=== PATIENT | male | born 1945 | race Caucasian/White ===

== ENCOUNTER 2023-11-07 11:55 | Observation (INO) | payer MEDICARE, SELFPAY ==
[2023-11-07] VITALS (42 sets, daily range): BP systolic 111–182; BP diastolic 58–89; PULSE 62–81; RESP 19–38; TEMP 36.1–36.5; O2SAT 88–95; BMI 25.0
--- NOTE | 2023-11-07 11:57 | DI.RAD.S_ITS ---
PROCEDURE: XR CHEST 1V INDICATIONS: chest pain TECHNIQUE: One view of the chest was acquired. COMPARISON: None. FINDINGS: Surgical changes and devices: None. Lungs and pleura: There is suggestion of small right pleural effusion with right basilar atelectasis. Ill-defined airspace opacity in left infrahilar region is also noted concerning for left lower lobe infiltrate. No pneumothorax. Chronic emphysematous changes are seen.. Mediastinum: Is enlarged. Tortuous thoracic aorta is seen. Bones and chest wall: No suspicious bony lesions. Overlying soft tissues appear unremarkable. IMPRESSION: Small left infrahilar infiltrate versus atelectasis. Small right pleural effusion with right basilar atelectasis. No pneumothorax. Dictated by: Raijnder Padron M.D. on 11/07/2023 at 12:22 Approved by: Rajinder Padron M.D. on 11/07/2023 at 12:24
--- NOTE | 2023-11-07 11:57 | EKG_ITS ---
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
--- NOTE | 2023-11-07 12:00 | EKG_ITS ---
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
--- NOTE | 2023-11-07 12:02 | ED.CHESTPAIN ---
HPI - Chest Pain <DO Jeannette Whitt Last Filed: 11/14/23 09:47> General Chief Complaint: Chest Pain Stated Complaint: possible heart attack Time Seen by Provider: 11/07/23 12:02 History of Present Illness HPI narrative: Patient is a 78-year-old male history of atrial fibrillation pneumonectomy on [facility] diltiazem aspirin presenting today with right-sided chest pain and some shortness of breath. He reports it started last night it has been constant in nature it does not hurt to move. He reports it is deep inside no known coronary artery disease it does go up into his neck sometimes. No fever chills or sweats. They drove up here from [place] to help a friend out. He has no known congestive heart failure. He has been taking all his medications. Looks to be in sinus rhythm on the monitor. Related Data Home Medications Medication Instructions Recorded Confirmed apixaban 5 mg tablet 5 mg PO DAILY 11/07/23 11/07/23 atorvastatin 20 mg tablet 20 mg PO DAILY 11/07/23 11/07/23 diltiazem HCl 120 mg capsule,24 120 mg PO DAILY 11/07/23 11/07/23 hr,extended release flecainide 50 mg tablet 50 mg PO Q12H 11/07/23 11/07/23 fluticasone fur. 100 mcg-umeclid 1 inh inhalation DAILY 11/07/23 11/07/23 62.5 mcg-vilant 25 mcg inhalat.powder (Trelegy Ellipta) fluticasone propionate 50 1 spray intranasal BID 11/07/23 11/07/23 mcg/actuation nasal spray,suspension losartan 50 mg tablet 50 mg PO BID 11/07/23 11/07/23 metformin 500 mg tablet 500 mg PO DAILY 11/07/23 11/07/23 pantoprazole 40 mg tablet,delayed 40 mg PO DAILY 11/07/23 11/07/23 release spironolactone 25 mg tablet 25 mg PO DAILY 11/07/23 11/07/23 Previous Rx's Medication Instructions Recorded doxycycline hyclate 100 mg capsule 100 mg PO BID #10 caps 11/08/23 Allergies Allergy/AdvReac Type Severity Reaction Status Date / Time No Known Drug Allergies Allergy Verified 11/07/23 12:05 Patient History <DO Jeannette Whitt Last Filed: 11/14/23 09:47> Social History household members: significant other Smoking Status: Former smoker Exam <Brandy Cortes DO - Last Filed: 11/14/23 09:47> Initial Vital Signs Initial Vital Signs: Vital Signs Temperature 97.7 F 11/07/23 11:59 Pulse Rate 72 11/07/23 11:59 Respiratory Rate 30 H 11/07/23 11:59 Blood Pressure 182/89 H 11/07/23 11:59 Pulse Oximetry 95 11/07/23 11:59 Oxygen Delivery Method Room Air 11/07/23 11:59 GENERAL: Alert pleasant 78-year-old male and in no acute distress. HEENT: Head atraumatic,EOMI, pupils reactive, face symmetric, moist mucous membranes CARDIOVASCULAR: Regular rate and rhythm without murmurs, rubs or gallops. RESPIRATORY: Breath sounds equal bilaterally, no wheezes rales or rhonchi. ABDOMEN: Soft, nontender. Normoactive bowel sounds all 4 quadrants. No guarding or rebound. EXTREMITIES: Normal range of motion, no clubbing or edema. Neurovascularly intact NEUROLOGICAL: Alert and oriented x4.Normal gait and speech. Cranial nerves II through XII grossly intact. SKIN: Warm, dry, no laceration, no petechiae, no rashes or lesions. <Danny Ojeda DO - Last Filed: 11/07/23 15:36> Initial Vital Signs Initial Vital Signs: Vital Signs Temperature 97.7 F 11/07/23 11:59 Pulse Rate 72 11/07/23 11:59 Respiratory Rate 30 H 11/07/23 11:59 Blood Pressure 182/89 H 11/07/23 11:59 Pulse Oximetry 95 11/07/23 11:59 Oxygen Delivery Method Room Air 11/07/23 11:59 Course <Brandy Cortes DO - Last Filed: 11/14/23 09:47> Orders Ordered: Discontinued Medications Acetaminophen (Acetaminophen 325 Mg Tablet) 650 mg PO Q6H PRN PRN Reason: Fever/Mild Pain (1-3) Last Admin: 11/07/23 20:23 Dose: 650 mg Documented By: [facility] Aspirin (Aspirin 81 Mg Chew Tab) 324 mg PO NOW ONE Stop: 11/07/23 11:58 Last Admin: 11/07/23 12:12 Dose: 324 mg Documented By: BK Doxycycline Hyclate (Doxycycline Hyclate 100 Mg Tablet) 100 mg PO BID [facility] Last Admin: 11/08/23 10:05 Dose: 100 mg Documented By: Admin: 11/07/23 20:20 Dose: 100 mg Documented By: MARCELL Ceftriaxone Sodium 2,000 mg/ (Sodium Chloride) 100 mls @ 200 mls/hr IV NOW ONE Stop: 11/07/23 15:34 Last Infusion: 11/07/23 16:55 Dose: Infused Documented By: Admin: 11/07/23 16:18 Dose: 200 mls/hr Documented By: RADHA Doxycycline Hyclate 100 mg/ (Sodium Chloride) 100 mls @ 100 mls/hr IV NOW ONE Stop: 11/07/23 15:34 Last Admin: 11/07/23 18:08 Dose: Not Given Documented By: BAKARI Ceftriaxone Sodium 1,000 mg/ (Sodium Chloride) 100 mls @ 200 mls/hr IV Q24H [facility] Last Admin: 11/08/23 10:05 Dose: 200 mls/hr Documented By: CARTER Naloxone HCl (Naloxone 0.4 Mg/Ml Vial) 0.2 mg IV Q2MIN PRN PRN Reason: Opiate Reversal Nitroglycerin (Nitroglycerin 0.4 Mg Sl Tab) 0.4 mg SL [id number] PRN PRN Reason: Chest Pain Last Admin: 11/07/23 12:26 Dose: 0.4 mg Documented By: Admin: 11/07/23 12:18 Dose: 0.4 mg Documented By: Admin: 11/07/23 12:13 Dose: 0.4 mg Documented By: BK Ondansetron HCl (Ondansetron 4 Mg/2 Ml Inj) 4 mg IV Q8HR PRN PRN Reason: Nausea And Vomiting Oxycodone HCl (Oxycodone Ir 5 Mg Tablet) 5 mg PO Q3H PRN PRN Reason: Pain, Moderate (4-6) Sodium Chloride (Sodium Chloride 0.9% Flush) 10 ml IV PRN PRN PRN Reason: Flush Sodium Chloride (Sodium Chloride 0.9% Flush) 10 ml IV BID [facility] Last Admin: 11/08/23 10:06 Dose: 10 ml Documented By: Admin: 11/07/23 20:24 Dose: 10 ml Documented By: MARCELL Vital Signs Vital signs: Vital Signs - 8 hr 11/07/23 11:59 11/07/23 12:08 11/07/23 12:09 Temperature 97.7 F Pulse Rate 72 70 71 Respiratory Rate 30 H 33 H 31 H Blood Pressure 182/89 H Pulse Oximetry 95 93 94 Oxygen Delivery Method Room Air 11/07/23 12:09 11/07/23 12:13 11/07/23 12:18 Temperature Pulse Rate 67 77 Respiratory Rate Blood Pressure 148/75 H 147/75 H 147/67 H Pulse Oximetry Oxygen Delivery Method 11/07/23 12:18 11/07/23 12:18 11/07/23 12:23 Temperature Pulse Rate 77 81 Respiratory Rate 30 H 33 H Blood Pressure 147/67 H Pulse Oximetry 92 93 Oxygen Delivery Method 11/07/23 12:23 11/07/23 12:26 11/07/23 12:28 Temperature Pulse Rate 79 80 Respiratory Rate 28 H Blood Pressure 126/58 L 126/58 L Pulse Oximetry 90 L Oxygen Delivery Method 11/07/23 12:28 11/07/23 12:30 11/07/23 12:30 Temperature Pulse Rate 80 Respiratory Rate 33 H Blood Pressure 122/61 111/64 Pulse Oximetry 91 Oxygen Delivery Method 11/07/23 12:40 11/07/23 12:40 11/07/23 12:50 Temperature Pulse Rate 74 73 Respiratory Rate 29 H 28 H Blood Pressure 123/64 Pulse Oximetry 93 93 Oxygen Delivery Method 11/07/23 12:50 11/07/23 13:00 11/07/23 13:00 Temperature Pulse Rate 72 Respiratory Rate 30 H Blood Pressure 123/62 121/65 Pulse Oximetry 92 Oxygen Delivery Method 11/07/23 13:10 11/07/23 13:10 11/07/23 13:20 Temperature Pulse Rate 72 67 Respiratory Rate 28 H 26 H Blood Pressure 118/69 Pulse Oximetry 94 94 Oxygen Delivery Method 11/07/23 13:20 11/07/23 13:30 11/07/23 13:30 Temperature Pulse Rate 64 Respiratory Rate 24 Blood Pressure 115/65 112/64 Pulse Oximetry 94 Oxygen Delivery Method 11/07/23 13:40 11/07/23 13:40 11/07/23 13:50 Temperature Pulse Rate 67 Respiratory Rate 26 H Blood Pressure 111/64 117/67 Pulse Oximetry 93 Oxygen Delivery Method 11/07/23 13:50 11/07/23 14:00 11/07/23 14:00 Temperature Pulse Rate 63 67 Respiratory Rate 24 27 H Blood Pressure 114/71 Pulse Oximetry 93 94 Oxygen Delivery Method 11/07/23 14:10 11/07/23 14:10 11/07/23 14:20 Temperature Pulse Rate 63 68 Respiratory Rate 24 28 H Blood Pressure 114/69 Pulse Oximetry 94 94 Oxygen Delivery Method 11/07/23 14:20 11/07/23 14:30 11/07/23 14:30 Temperature Pulse Rate 62 Respiratory Rate 26 H Blood Pressure 121/75 119/74 Pulse Oximetry 93 Oxygen Delivery Method 11/07/23 14:40 11/07/23 14:40 Temperature Pulse Rate 65 Respiratory Rate 30 H Blood Pressure 118/74 Pulse Oximetry 95 Oxygen Delivery Method <aDnny Ojeda, - Last Filed: 11/07/23 15:36> Orders Ordered: Discontinued Medications Acetaminophen (Acetaminophen 325 Mg Tablet) 650 mg PO Q6H PRN PRN Reason: Fever/Mild Pain (1-3) Last Admin: 11/07/23 20:23 Dose: 650 mg Documented By: MARCELL Aspirin (Aspirin 81 Mg Chew Tab) 324 mg PO NOW ONE Stop: 11/07/23 11:58 Last Admin: 11/07/23 12:12 Dose: 324 mg Documented By: BK Doxycycline Hyclate (Doxycycline Hyclate 100 Mg Tablet) 100 mg PO BID [facility] Last Admin: 11/08/23 10:05 Dose: 100 mg Documented By: Admin: 11/07/23 20:20 Dose: 100 mg Documented By: MARCELL Ceftriaxone Sodium 2,000 mg/ (Sodium Chloride) 100 mls @ 200 mls/hr IV NOW ONE Stop: 11/07/23 15:34 Last Infusion: 11/07/23 16:55 Dose: Infused Documented By: Admin: 11/07/23 16:18 Dose: 200 mls/hr Documented By: RADHA Doxycycline Hyclate 100 mg/ (Sodium Chloride) 100 mls @ 100 mls/hr IV NOW ONE Stop: 11/07/23 15:34 Last Admin: 11/07/23 18:08 Dose: Not Given Documented By: BAKARI Ceftriaxone Sodium 1,000 mg/ (Sodium Chloride) 100 mls @ 200 mls/hr IV Q24H [facility] Last Admin: 11/08/23 10:05 Dose: 200 mls/hr Documented By: CARTER Naloxone HCl (Naloxone 0.4 Mg/Ml Vial) 0.2 mg IV Q2MIN PRN PRN Reason: Opiate Reversal Nitroglycerin (Nitroglycerin 0.4 Mg Sl Tab) 0.4 mg SL [id number] PRN PRN Reason: Chest Pain Last Admin: 11/07/23 12:26 Dose: 0.4 mg Documented By: Admin: 11/07/23 12:18 Dose: 0.4 mg Documented By: Admin: 11/07/23 12:13 Dose: 0.4 mg Documented By: BK Ondansetron HCl (Ondansetron 4 Mg/2 Ml Inj) 4 mg IV Q8HR PRN PRN Reason: Nausea And Vomiting Oxycodone HCl (Oxycodone Ir 5 Mg Tablet) 5 mg PO Q3H PRN PRN Reason: Pain, Moderate (4-6) Sodium Chloride (Sodium Chloride 0.9% Flush) 10 ml IV PRN PRN PRN Reason: Flush Sodium Chloride (Sodium Chloride 0.9% Flush) 10 ml IV BID [facility] Last Admin: 11/08/23 10:06 Dose: 10 ml Documented By: Admin: 11/07/23 20:24 Dose: 10 ml Documented By: MARCELL Vital Signs Vital signs: Vital Signs - 8 hr 11/07/23 11:59 11/07/23 12:08 11/07/23 12:09 Temperature 97.7 F Pulse Rate 72 70 71 Respiratory Rate 30 H 33 H 31 H Blood Pressure 182/89 H Pulse Oximetry 95 93 94 Oxygen Delivery Method Room Air 11/07/23 12:09 11/07/23 12:13 11/07/23 12:18 Temperature Pulse Rate 67 77 Respiratory Rate Blood Pressure 148/75 H 147/75 H 147/67 H Pulse Oximetry Oxygen Delivery Method 11/07/23 12:18 11/07/23 12:18 11/07/23 12:23 Temperature Pulse Rate 77 81 Respiratory Rate 30 H 33 H Blood Pressure 147/67 H Pulse Oximetry 92 93 Oxygen Delivery Method 11/07/23 12:23 11/07/23 12:26 11/07/23 12:28 Temperature Pulse Rate 79 80 Respiratory Rate 28 H Blood Pressure 126/58 L 126/58 L Pulse Oximetry 90 L Oxygen Delivery Method 11/07/23 12:28 11/07/23 12:30 11/07/23 12:30 Temperature Pulse Rate 80 Respiratory Rate 33 H Blood Pressure 122/61 111/64 Pulse Oximetry 91 Oxygen Delivery Method 11/07/23 12:40 11/07/23 12:40 11/07/23 12:50 Temperature Pulse Rate 74 73 Respiratory Rate 29 H 28 H Blood Pressure 123/64 Pulse Oximetry 93 93 Oxygen Delivery Method 11/07/23 12:50 11/07/23 13:00 11/07/23 13:00 Temperature Pulse Rate 72 Respiratory Rate 30 H Blood Pressure 123/62 121/65 Pulse Oximetry 92 Oxygen Delivery Method 11/07/23 13:10 11/07/23 13:10 11/07/23 13:20 Temperature Pulse Rate 72 67 Respiratory Rate 28 H 26 H Blood Pressure 118/69 Pulse Oximetry 94 94 Oxygen Delivery Method 11/07/23 13:20 11/07/23 13:30 11/07/23 13:30 Temperature Pulse Rate 64 Respiratory Rate 24 Blood Pressure 115/65 112/64 Pulse Oximetry 94 Oxygen Delivery Method 11/07/23 13:40 11/07/23 13:40 11/07/23 13:50 Temperature Pulse Rate 67 Respiratory Rate 26 H Blood Pressure 111/64 117/67 Pulse Oximetry 93 Oxygen Delivery Method 11/07/23 13:50 11/07/23 14:00 11/07/23 14:00 Temperature Pulse Rate 63 67 Respiratory Rate 24 27 H Blood Pressure 114/71 Pulse Oximetry 93 94 Oxygen Delivery Method 11/07/23 14:10 11/07/23 14:10 11/07/23 14:20 Temperature Pulse Rate 63 68 Respiratory Rate 24 28 H Blood Pressure 114/69 Pulse Oximetry 94 94 Oxygen Delivery Method 11/07/23 14:20 11/07/23 14:30 11/07/23 14:30 Temperature Pulse Rate 62 Respiratory Rate 26 H Blood Pressure 121/75 119/74 Pulse Oximetry 93 Oxygen Delivery Method 11/07/23 14:40 11/07/23 14:40 Temperature Pulse Rate 65 Respiratory Rate 30 H Blood Pressure 118/74 Pulse Oximetry 95 Oxygen Delivery Method MDM - Chest Pain <Brandy Cortes DO - Last Filed: 11/14/23 09:47> Lab Data 11/08/23 04:10 11/08/23 04:10 Labs: Lab Results 11/07/23 11/07/23 11/07/23 Range/Units 12:01 13:55 15:05 WBC 16.0 H (4.5-11.0) X10^3/uL RBC 4.80 (4.5-5.9) X10^6/uL Hgb 16.1 (13.5-17.5) g/dL Hct 48.2 (41-53) % MCV 100.3 H (80-100) fL MCH 33.5 (26-34) PG MCHC 33.4 (30-36) % RDW 14.4 (11.6-14.8) % Plt Count 302 (150-400) X10^3/uL Neut % (Auto) 65.5 (50-75) % Lymph % (Auto) 17.8 L (25-40) % Jack % (Auto) 14.5 H (3-14) % Eos % (Auto) 1.3 L (2-4) % Baso % (Auto) 0.9 (0-2) % Neut # (Auto) 18573 H (9655-9036) /uL Lymph # (Auto) 2900 (5115-4608) /uL Jack # (Auto) 2300 H (0-900) /uL Eos # (Auto) 200 (0-450) /uL Baso # (Auto) 100 (0-100) /uL PT 16.3 H (9.4-12.5) SECONDS INR 1.4 H (0.9-1.3) APTT 38 H (25.1-36.5) SECONDS D-Dimer < 215 (<500) ng/ml Sodium 138 (137-145) mmol/L Potassium 4.5 (3.4-5.1) mmol/L Chloride 105 (98-107) mmol/L Carbon Dioxide 25 (22-32) mmol/L BUN 14 (9-20) mg/dL Creatinine 0.98 (0.66-1.25) mg/dL Estimated GFR > 60 (>60) mL/min BUN/Creatinine Ratio 14.3 (6-22) Glucose 102 (80-110) mg/dL Calcium 9.6 (8.4-10.2) mg/dL Magnesium 1.8 (1.6-2.3) mg/dL Total Bilirubin 1.1 (0.2-1.3) mg/dL AST 29 (17-59) IU/L ALT 32 (<50) IU/L Alkaline Phosphatase 56 (38-126) U/L Total Creatine Kinase 67 (55-170) U/L Troponin I < 0.012 < 0.012 (0.01-0.034) ng/mL NT-Pro-B Natriuret Pep 38 (<450) pg/mL Total Protein 7.6 (6.3-8.2) g/dL Albumin 4.4 (3.5-5.0) g/dL Globulin 3.2 (1.7-4.1) g/dL Albumin/Globulin Ratio 1.4 (1.0-2.8) Lipase 36 (23-300) U/L Urine Color Yellow Urine Appearance Clear Urine pH 5.5 (4.5-8.0) Ur Specific [place] 1.015 (1.000-1.035) Urine Protein Negative (Negative) Urine Glucose (UA) Negative (Negative) g/dL Urine Ketones Negative (NEGATIVE) Urine Occult Blood Negative (Negative) Urine Nitrate Negative (Negative) Urine Bilirubin Negative (NEGATIVE) Urine Urobilinogen 0.2 (0.2) E.U./dL Ur Leukocyte Esterase Trace H (NEGATIVE) Urine RBC None seen (0-5/HPF) Urine WBC 0-1/hpf (0-5/HPF) Ur Squamous Epith Cells 0-1 /hpf (0-5/HPF) Urine Bacteria Occasional (0-1) (None) Ur Culture Indicated? Specimen cultured Vol Urine Centrifuged 10ml (spun) Imaging Data Chest x-ray: Radiologist's Impression: PROCEDURE: XR CHEST 1V INDICATIONS: chest pain TECHNIQUE: One view of the chest was acquired. COMPARISON: None. FINDINGS: Surgical changes and devices: None. Lungs and pleura: There is suggestion of small right pleural effusion with right basilar atelectasis. Ill-defined airspace opacity in left infrahilar region is also noted concerning for left lower lobe infiltrate. No pneumothorax. Chronic emphysematous changes are seen.. Mediastinum: Is enlarged. Tortuous thoracic aorta is seen. Bones and chest wall: No suspicious bony lesions. Overlying soft tissues appear unremarkable. IMPRESSION: Small left infrahilar infiltrate versus atelectasis. Small right pleural effusion with right basilar atelectasis. No pneumothorax. Dictated by: Rajinder Padron M.D. on 11/07/2023 at 12:22 ECG Data Attestation: I personally reviewed and interpreted this ECG as follows: Interpretation: Normal sinus rhythm rate 72 IL interval 184 QRS 142 QTC 457 right bundle-branch block noted no acute ST changes MDM Narrative Medical decision making narrative: MDM CC: Chest pain Complicating co-morbidities: Atrial fibrillation pneumonectomy, on Eliquis and aspirin Medical records reviewed: Medications reviewed from patient's phone Differential considered: Acute coronary syndrome AFib with RVR pneumonia PE unlikely cause he is anticoagulated Exam documented above, pertinent findings include: Pain nonreproducible appears well non diaphoretic Lab Test results independently reviewed as above. Pertinent findings: WBC 16, INR 1.4 PTT 38, sodium 130 potassium 4 chloride 105 carbon dioxide 25 BUN 14 creatinine 0.9, glucose 102 bili 1.1, AST 29, ALT 32, troponin Independently reviewed EKG as above Normal sinus rhythm right bundle-branch block no ischemia no priors to compare Imaging studies independently reviewed: Consultations: [ ] Treatments: Nitro x2 Re-evaluations: Patient is completely chest pain-free after 2 nitroglycerin Discussion: Patient is 78-year-old male history of atrial fibrillation lung cancer on Eliquis and flecainide presenting today with large right-sided chest pain. His pain is relieved after 2 nitroglycerin. 1st troponin is negative he has no ischemia. Patient reports he has previously not been able to do treadmill stress test because he frequently needs oxygen while he does not he is not on oxygen baseline. Repeat troponin is pending Signed out to Dr. Ojeda patient with a leukocytosis of 16, chest x-ray showing possible atelectasis versus infiltrate of the left side, patient not complaining of any cough, however upon re-evaluation patient with intermittent ,Coughs upon talking, therefore will prophylactically treat for pneumonia. Rocephin and doxy ordered. Did discuss case with cardiology who state patient does not need to be transferred can stay here but would recommend nuclear stress test and echo in the a.m.. Discussed with hospitalist who accepts admission. <Danny Ojeda, - Last Filed: 11/07/23 15:36> Differential Diagnosis Differential diagnosis: Likely atypical chest pain, st elevation myocardial infarction and other (pneumonia) Condition is:: Improved Lab Data Labs: Lab Results 11/07/23 11/07/23 11/07/23 Range/Units 12:01 13:55 15:05 WBC 16.0 H (4.5-11.0) X10^3/uL RBC 4.80 (4.5-5.9) X10^6/uL Hgb 16.1 (13.5-17.5) g/dL Hct 48.2 (41-53) % MCV 100.3 H (80-100) fL MCH 33.5 (26-34) PG MCHC 33.4 (30-36) % RDW 14.4 (11.6-14.8) % Plt Count 302 (150-400) X10^3/uL Neut % (Auto) 65.5 (50-75) % Lymph % (Auto) 17.8 L (25-40) % Jack % (Auto) 14.5 H (3-14) % Eos % (Auto) 1.3 L (2-4) % Baso % (Auto) 0.9 (0-2) % Neut # (Auto) 08984 H (3422-1692) /uL Lymph # (Auto) 2900 (7574-1339) /uL Jack # (Auto) 2300 H (0-900) /uL Eos # (Auto) 200 (0-450) /uL Baso # (Auto) 100 (0-100) /uL PT 16.3 H (9.4-12.5) SECONDS INR 1.4 H (0.9-1.3) APTT 38 H (25.1-36.5) SECONDS D-Dimer < 215 (<500) ng/ml Sodium 138 (137-145) mmol/L Potassium 4.5 (3.4-5.1) mmol/L Chloride 105 (98-107) mmol/L Carbon Dioxide 25 (22-32) mmol/L BUN 14 (9-20) mg/dL Creatinine 0.98 (0.66-1.25) mg/dL Estimated GFR > 60 (>60) mL/min BUN/Creatinine Ratio 14.3 (6-22) Glucose 102 (80-110) mg/dL Calcium 9.6 (8.4-10.2) mg/dL Magnesium 1.8 (1.6-2.3) mg/dL Total Bilirubin 1.1 (0.2-1.3) mg/dL AST 29 (17-59) IU/L ALT 32 (<50) IU/L Alkaline Phosphatase 56 (38-126) U/L Total Creatine Kinase 67 (55-170) U/L Troponin I < 0.012 < 0.012 (0.01-0.034) ng/mL NT-Pro-B Natriuret Pep 38 (<450) pg/mL Total Protein 7.6 (6.3-8.2) g/dL Albumin 4.4 (3.5-5.0) g/dL Globulin 3.2 (1.7-4.1) g/dL Albumin/Globulin Ratio 1.4 (1.0-2.8) Lipase 36 (23-300) U/L Urine Color Yellow Urine Appearance Clear Urine pH 5.5 (4.5-8.0) Ur Specific [place] 1.015 (1.000-1.035) Urine Protein Negative (Negative) Urine Glucose (UA) Negative (Negative) g/dL Urine Ketones Negative (NEGATIVE) Urine Occult Blood Negative (Negative) Urine Nitrate Negative (Negative) Urine Bilirubin Negative (NEGATIVE) Urine Urobilinogen 0.2 (0.2) E.U./dL Ur Leukocyte Esterase Trace H (NEGATIVE) Urine RBC None seen (0-5/HPF) Urine WBC 0-1/hpf (0-5/HPF) Ur Squamous Epith Cells 0-1 /hpf (0-5/HPF) Urine Bacteria Occasional (0-1) (None) Ur Culture Indicated? Specimen cultured Vol Urine Centrifuged 10ml (spun) Imaging Data Chest x-ray: Attestation: I personally reviewed and interpreted this imaging study as follows: MDM Narrative Medical decision making narrative: MDM CC: Chest pain Complicating co-morbidities: Atrial fibrillation pneumonectomy, on Eliquis and aspirin Medical records reviewed: Medications reviewed from patient's phone Differential considered: Acute coronary syndrome AFib with RVR pneumonia PE unlikely cause he is anticoagulated Exam documented above, pertinent findings include: Pain nonreproducible appears well non diaphoretic Lab Test results independently reviewed as above. Pertinent findings: WBC 16, INR 1.4 PTT 38, sodium 130 potassium 4 chloride 105 carbon dioxide 25 BUN 14 creatinine 0.9, glucose 102 bili 1.1, AST 29, ALT 32, troponin Independently reviewed EKG as above Imaging studies independently reviewed: Normal sinus rhythm right bundle-branch block no ischemia no priors to compare Consultations: [ ] Treatments: Nitro x2 Re-evaluations: Patient is completely chest pain-free after 2 nitroglycerin Discussion: Patient is 78-year-old male history of atrial fibrillation lung cancer on Eliquis and flecainide presenting today with large right-sided chest pain. His pain is relieved after 2 nitroglycerin. 1st troponin is negative he has no ischemia. Patient reports he has previously not been able to do treadmill stress test because he frequently needs oxygen while he does not he is not on oxygen baseline. Repeat troponin is pending Signed out to Dr. Ojeda patient with a leukocytosis of 16, chest x-ray showing possible atelectasis versus infiltrate of the left side, patient not complaining of any cough, however upon re-evaluation patient with intermittent ,Coughs upon talking, therefore will prophylactically treat for pneumonia. Rocephin and doxy ordered. Did discuss case with cardiology who state patient does not need to be transferred can stay here but would recommend nuclear stress test and echo in the a.m.. Discussed with hospitalist who accepts admission. Discharge Plan Departure Patient Disposition: Admitted As Inpatient Clinical Impression: Chest pain Qualifiers: Chest pain type: unspecified Qualified Code(s): R07.9 - Chest pain, unspecified Pneumonia Qualifiers: Pneumonia type: due to unspecified organism Laterality: left Lung location: lower lobe of lung Qualified Code(s): J18.9 - Pneumonia, unspecified organism Admit Date/Time: 11/07/23 15:33 Admit Provider: Jasvir Garcia
[2023-11-07] MEDS: ASPIRIN 81 MG CHEW TAB 324 MG PO (12:12)
[2023-11-07] MEDS: NITROGLYCERIN 0.4 MG SL TAB SL ×3 (12:13→12:26)
[2023-11-07 12:15] LABS: Add Manual Diff / Slide Review NO; Basophils Absolute Auto 100 /uL (0-100); Basophils Percent Auto 0.9 % (0-2); Eosinophils Absolute Auto 200 /uL (0-450); Eosinophils Percent Auto 1.3 % (2-4); Hematocrit 48.2 % (41-53); Hemoglobin 16.1 g/dL (13.5-17.5); Lymphocytes Absolute Auto 2900 /uL (1100-4500); Lymphocytes Percent Auto 17.8 % (25-40); Mean Corpuscular HGB Conc 33.4 % (30-36); Mean Corpuscular Hemoglobin 33.5 PG (26-34); Mean Corpuscular Volume 100.3 fL (80-100); Monocytes Absolute Auto 2300 /uL (0-900); Monocytes Percent Auto 14.5 % (3-14); Neutrophils Absolute Auto 10500 /uL (1500-7000); Neutrophils Percent Auto 65.5 % (50-75); Platelet Count 302 X10^3/uL (150-400); Red Cell Distribution Width 14.4 % (11.6-14.8)
[2023-11-07 12:19] LABS: INR 1.4 (0.9-1.3); Prothrombin Time 16.3 SECONDS (9.4-12.5)
[2023-11-07 12:21] LABS: PTT Partial Thromboplastin Tim 38 SECONDS (25.1-36.5)
[2023-11-07 12:29] LABS: Alanine Aminotransferase 32 IU/L (<50); Albumin 4.4 g/dL (3.5-5.0); Albumin Globulin Ratio 1.4 (1.0-2.8); Alkaline Phosphatase 56 U/L (38-126); Aspartate Aminotransferase 29 IU/L (17-59); BUN Creatinine Ratio 14.3 (6-22); Bilirubin Total 1.1 mg/dL (0.2-1.3); Blood Urea Nitrogen 14 mg/dL (9-20); Calcium 9.6 mg/dL (8.4-10.2); Carbon Dioxide 25 mmol/L (22-32); Chloride 105 mmol/L (98-107); Creatine Kinase 67 U/L (55-170); Estimated Glomerular Filt Rate > 60 mL/min (>60); Globulin 3.2 g/dL (1.7-4.1); Glucose 102 mg/dL (80-110); HEMOLYSIS < 15 (0-50); Lipase 36 U/L (23-300); Magnesium 1.8 mg/dL (1.6-2.3); Potassium 4.5 mmol/L (3.4-5.1); Sodium 138 mmol/L (137-145); Total Protein 7.6 g/dL (6.3-8.2)
--- NOTE | 2023-11-07 12:36 | EKG_ITS ---
[place] [address] [place] [id number] Test Date: 2023-11-07 Pat Name: Sharath Brand Department: [facility] Room: Gender: Male Director [facility]: ISHA : 1945 Requested By: Order Number: [id number] Reading MD: Jasvir Garcia Measurements Intervals [place] Rate: 77 P: 46 [place]: 178 QRS: 6 QRSD: 150 T: 31 QT: 490 QTc: 554 Interpretive Statements Normal sinus rhythm Right bundle branch block Electronically Signed On 11-08-2023 7:26:59 PDT by Jasvir Garcia
--- NOTE | 2023-11-07 12:39 | PC.NURSE ---
Hx lung cancer 2010, right lung removed. Lung cancer returned 2017, radiation @ that time. Pt lives in [place] and [place]. at bedside.
[2023-11-07 12:40] LABS: NT-proBNP (BNP-Adult 18+) 38 pg/mL (<450); Troponin I < 0.012 ng/mL (0.01-0.034)
--- NOTE | 2023-11-07 14:18 | EKG_ITS ---
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
[2023-11-07 14:26] LABS: Troponin I < 0.012 ng/mL (0.01-0.034)
--- NOTE | 2023-11-07 15:31 | PM.HP.1 ---
History of Present Illness History of Present Illness Date Patient Seen: 11/07/23 Chief complaint: possible heart attack Narrative: From ED notes: Patient is a 78-year-old male history of atrial fibrillation pneumonectomy on Eliquis Trulicity diltiazem aspirin presenting today with right-sided chest pain and some shortness of breath. He reports it started last night it has been constant in nature it does not hurt to move. He reports it is deep inside no known coronary artery disease it does go up into his neck sometimes. No fever chills or sweats. They drove up here from [place] to help a friend out. He has no known congestive heart failure. He has been taking all his medications. Looks to be in sinus rhythm on the monitor. ED course: ECG obtained, nonacute. 2 negative troponins obtained and discussed with Cardiology with recommendations for stress test. Empiric antibiotics started for possible pneumonia. Subjective: 78-year old man with a history of atrial fibrillation on chronic anticoagulation who recently drove up from [facility]. He has had a 3 day history of pleuritic chest pain on the right, with minimal associated dyspnea, no cough and no fevers. He also has not had rhinorrhea. He has a history of a partial pneumonectomy on the right for cancer as well as radiation therapy to the right chest for recurrence in . He denies any clear exertional component of his pain, no leg edema, and no orthopnea. He was visiting a friend in the area. He has no known history of CAD. He was admitted for concern of chest pain and Cardiology was called from the ED. They recommended a stress test. The patient had 2- troponins in the ED and a static ECG. There is a question of infiltrate, he was started on antibiotics. [facility] Social History Smoking Status: Former smoker Meds Home Medications and Allergies Allergies Allergy/AdvReac Type Severity Reaction Status Date / Time No Known Drug Allergies Allergy Verified 11/07/23 12:05 Review of Systems Review of Systems Narrative: All else reviewed and otherwise unremarkable except as noted in the history and physical. Exam Vital Signs (past 8 hours): - 11/07/23 11:59 11/07/23 12:08 11/07/23 12:09 Temperature 97.7 F Pulse Rate 72 70 71 Respiratory Rate 30 H 33 H 31 H Blood Pressure 182/89 H Pulse Oximetry 95 93 94 Oxygen Delivery Method Room Air 11/07/23 12:09 11/07/23 12:13 11/07/23 12:18 Temperature Pulse Rate 67 77 Respiratory Rate Blood Pressure 148/75 H 147/75 H 147/67 H Pulse Oximetry Oxygen Delivery Method 11/07/23 12:18 11/07/23 12:18 11/07/23 12:23 Temperature Pulse Rate 77 81 Respiratory Rate 30 H 33 H Blood Pressure 147/67 H Pulse Oximetry 92 93 Oxygen Delivery Method 11/07/23 12:23 11/07/23 12:26 11/07/23 12:28 Temperature Pulse Rate 79 80 Respiratory Rate 28 H Blood Pressure 126/58 L 126/58 L Pulse Oximetry 90 L Oxygen Delivery Method 11/07/23 12:28 11/07/23 12:30 11/07/23 12:30 Temperature Pulse Rate 80 Respiratory Rate 33 H Blood Pressure 122/61 111/64 Pulse Oximetry 91 Oxygen Delivery Method 11/07/23 12:40 11/07/23 12:40 11/07/23 12:50 Temperature Pulse Rate 74 73 Respiratory Rate 29 H 28 H Blood Pressure 123/64 Pulse Oximetry 93 93 Oxygen Delivery Method 11/07/23 12:50 11/07/23 13:00 11/07/23 13:00 Temperature Pulse Rate 72 Respiratory Rate 30 H Blood Pressure 123/62 121/65 Pulse Oximetry 92 Oxygen Delivery Method 11/07/23 13:10 11/07/23 13:10 11/07/23 13:20 Temperature Pulse Rate 72 67 Respiratory Rate 28 H 26 H Blood Pressure 118/69 Pulse Oximetry 94 94 Oxygen Delivery Method 11/07/23 13:20 11/07/23 13:30 11/07/23 13:30 Temperature Pulse Rate 64 Respiratory Rate 24 Blood Pressure 115/65 112/64 Pulse Oximetry 94 Oxygen Delivery Method 11/07/23 13:40 11/07/23 13:40 11/07/23 13:50 Temperature Pulse Rate 67 Respiratory Rate 26 H Blood Pressure 111/64 117/67 Pulse Oximetry 93 Oxygen Delivery Method 11/07/23 13:50 11/07/23 14:00 11/07/23 14:00 Temperature Pulse Rate 63 67 Respiratory Rate 24 27 H Blood Pressure 114/71 Pulse Oximetry 93 94 Oxygen Delivery Method 11/07/23 14:10 11/07/23 14:10 11/07/23 14:20 Temperature Pulse Rate 63 68 Respiratory Rate 24 28 H Blood Pressure 114/69 Pulse Oximetry 94 94 Oxygen Delivery Method 11/07/23 14:20 11/07/23 14:30 11/07/23 14:30 Temperature Pulse Rate 62 Respiratory Rate 26 H Blood Pressure 121/75 119/74 Pulse Oximetry 93 Oxygen Delivery Method 11/07/23 14:40 11/07/23 14:40 Temperature Pulse Rate 65 Respiratory Rate 30 H Blood Pressure 118/74 Pulse Oximetry 95 Oxygen Delivery Method Oxygen Delivery Method Room Air Narrative Exam Narrative: NAD, alert and oriented, fluent speech, calm. Normocephalic skull, EOMI, anicteric sclera, symmetric pupils. Oropharynx unremarkable, no droop. Neck supple, midline trachea, no adenopathy. Lungs clear, normal rate and effort. Diminished breath sounds on the right consistent with his history of pneumonectomy. Heart regular, no murmur gallop or rub. Abdomen is soft, non distended and non tender. Extremities are free of edema. Skin is free of rash or lesions. Joints are not swollen or deformed. Judgment appears to be normal. Objective ECG Impression: Normal sinus rhythm with sinus arrhythmia Right bundle branch block Imaging Chest x-ray: Radiologist's impression: Small left infrahilar infiltrate versus atelectasis. Small right pleural effusion with right basilar atelectasis. No pneumothorax. Labs 11/07/23 12:01 11/07/23 12:01 Labs: Laboratory Results - last 24 hr 11/07/23 11/07/23 12:01 13:55 WBC 16.0 H RBC 4.80 Hgb 16.1 Hct 48.2 MCV 100.3 H MCH 33.5 MCHC 33.4 RDW 14.4 Plt Count 302 Neut % (Auto) 65.5 Lymph % (Auto) 17.8 L Snyder % (Auto) 14.5 H Eos % (Auto) 1.3 L Baso % (Auto) 0.9 Neut # (Auto) 27[address] H Lymph # (Auto) 2900 Snyder # (Auto) 2300 H Eos # (Auto) 200 Baso # (Auto) 100 PT 16.3 H INR 1.4 H APTT 38 H Sodium 138 Potassium 4.5 Chloride 105 Carbon Dioxide 25 BUN 14 Creatinine 0.98 Estimated GFR > 60 BUN/Creatinine Ratio 14.3 Glucose 102 Calcium 9.6 Magnesium 1.8 Total Bilirubin 1.1 AST 29 ALT 32 Alkaline Phosphatase 56 Total Creatine Kinase 67 Troponin I < 0.012 < 0.012 NT-Pro-B Natriuret Pep 38 Total Protein 7.6 Albumin 4.4 Globulin 3.2 Albumin/Globulin Ratio 1.4 Lipase 36 Assessment & Plan Assessment & Plan narrative: 1. Chest pain, present on admission and resolved with 2 nitroglycerin. Heart score was 5 in the emergency department. 2. Possible community-acquired pneumonia, present on admission and active. 3. Chronic atrial fibrillation on apixaban, present on admission and stable. Plan: -blood and sputum cultures, empiric antibiotics for cap. Ceftriaxone and azithromycin for 5, 3 days. -trend troponins, stress test in the morning. -continue apixaban for chronic atrial fibrillation. Observation status, anticipate 1 midnight of medical necessity. Full resuscitation. JULIETTE is November 07, home. Time-Based Coding :: 30 min spent with patient and on the chart (including review of chart, obtaining history, exam, reviewing outside data, placing orders, documenting exam and treatment plan, and counseling patient) on 11/06. Quality MIPS - Admit I confirm the patient?s Advance Care Plan is present, Code status is documented, Surrogate decision maker is in patient?s record [If Yes, STOP here]: Yes MIPS - Meds 'Current medications' to include all prescriptions, [id number] products, herbals, cannabis/cannabidiol products, and vitamin/mineral/dietary (nutritional) supplements. I have utilized all available resources to obtain, update, or review the patient?s current medications. [If Yes, STOP here]: Yes
[2023-11-07] MEDS: cefTRIAXone 2,000 MG in SODIUM CHLORIDE 0.9% 100 ML 200 MG IV (16:18)
[2023-11-07 16:20] LABS: Appearance Urine UA CLEAR; Bilirubin Urine UA NEGATIVE (NEGATIVE); Color Urine UA YELLOW; Glucose Urine UA NEGATIVE (Negative); Ketones Urine UA NEGATIVE (NEGATIVE); Leukocyte Esterase Urine UA TRACE (NEGATIVE); Nitrite Urine UA NEGATIVE (Negative); Occult Blood Urine UA NEGATIVE (Negative); Protein Urine UA NEGATIVE (Negative); Specific Gravity Urine UA 1.015 (1.000-1.035); Urobilinogen Urine UA 0.2 E.U./dL (0.2); pH Urine UA 5.5 (4.5-8.0)
[2023-11-07 16:38] LABS: Bacteria Urine Occasional (0-1); Culture Indicated Urine Specimen Cultured; RBC Urine None Seen (0-5/HPF); Squamous Epithelial Cell Urine 0-1 /HPF (0-5/HPF); Urine Volume 10mL (spun); WBC Urine 0-1/HPF (0-5/HPF)
[2023-11-07 17:21] LABS: D Dimer < 215 ng/ml (<500)
[2023-11-07 18:56] LABS: Troponin I < 0.012 ng/mL (0.01-0.034)
[2023-11-07] MEDS: DOXYCYCLINE HYCLATE 100 MG TABLET PO (20:20)
[2023-11-07] MEDS: ACETAMINOPHEN 325 MG TABLET 650 MG PO (20:23)
[2023-11-07] MEDS: SODIUM CHLORIDE 0.9% FLUSH 10 ML IV (20:24)
[2023-11-08] VITALS: BP 121/77; PULSE 70; TEMP 37.3; O2SAT 95
[2023-11-08 04:00] VITALS: BP 145/71; PULSE 67; RESP 22; TEMP 36.9; O2SAT 91
[2023-11-08 04:52] LABS: BUN Creatinine Ratio 19.6 (6-22); Blood Urea Nitrogen 20 mg/dL (9-20); Calcium 9.1 mg/dL (8.4-10.2); Carbon Dioxide 26 mmol/L (22-32); Chloride 106 mmol/L (98-107); Estimated Glomerular Filt Rate > 60 mL/min (>60); Glucose 128 mg/dL (80-110); HEMOLYSIS < 15 (0-50); Sodium 136 mmol/L (137-145)
[2023-11-08 05:03] LABS: Add Manual Diff / Slide Review NO; Basophils Absolute Auto 100 /uL (0-100); Basophils Percent Auto 0.9 % (0-2); Eosinophils Absolute Auto 200 /uL (0-450); Eosinophils Percent Auto 2.1 % (2-4); Hematocrit 44.3 % (41-53); Lymphocytes Absolute Auto 2800 /uL (1100-4500); Lymphocytes Percent Auto 24.1 % (25-40); Mean Corpuscular HGB Conc 33.8 % (30-36); Mean Corpuscular Hemoglobin 33.8 PG (26-34); Monocytes Absolute Auto 1900 /uL (0-900); Monocytes Percent Auto 16.1 % (3-14); Neutrophils Absolute Auto 6600 /uL (1500-7000); Neutrophils Percent Auto 56.8 % (50-75); Platelet Count 282 X10^3/uL (150-400); Red Blood Cell Count 4.43 X10^6/uL (4.5-5.9); Red Cell Distribution Width 14.5 % (11.6-14.8); White Blood Cell Count 11.7 X10^3/uL (4.5-11.0)
--- NOTE | 2023-11-08 06:00 | PC.NURSE ---
Admiralty Lawyer Note-Patient is A/Ox4, HOPI and a little impulsive at times. Tylenol given for pleuritic chest 08/12, declined oxycodone. Mild shortness of breath while ambulating to BR, steady. States he uses 2-3L oxygen at home, mostly at night. SR, BBB, prolonged QTc 0.645. VSS. NPO after MN for nuclear stress test. Baker and credit cards sent to [place] to be locked in safe.
--- NOTE | 2023-11-08 07:56 | DI.ECHO.S_ITS ---
[facility] : : [address] : : [place] : : [id number] : : Phone: [phone] Echocardiogram Report + + :Name: MICHAEL MARSH Study Date: 11/08/2023 Height: 73 in : :[facility] ReadingLocation: Weight: 190 lb : : Gender: Male BSA: 2.1 m2 : :: 1945 Age: 78 yrs BP: 110/78 mmHg: :Reason For Study: CHEST PAIN : :Ordering Physician: LUCIA, : :DAWN Pineda Performed By: Ciro Soto : :Referring: DAWN MYERS : + + Interpretation Summary The study quality was technically limited. The ejection fraction is estimated to be 55-60%. Pulmonary artery pressures cannot be estimated because of the lack of a measurable TR jet velocity. Procedure: A two-dimensional transthoracic echocardiogram with color flow and Doppler was performed. The study quality was technically limited. There is no prior echocardiogram noted for this patient. The heart rate ranged between 56-68 bpm during the study. Left Ventricle: The left ventricle is normal in size and wall thickness. The ejection fraction is estimated to be 55-60%. Aortic Valve: The aortic valve is trileaflet. The aortic valve is slightly calcified. Tricuspid Valve: The tricuspid valve is not well visualized, but is grossly normal. There is no tricuspid stenosis. There is trace tricuspid regurgitation. Pulmonary artery pressures cannot be estimated because of the lack of a measurable TR jet velocity. Pulmonic Valve: The pulmonic valve is not well visualized. There is no pulmonic valvular stenosis. There is no pulmonic valvular regurgitation. MMode/2D Measurements & Calculations LVIDd: 5.1 cm LVOT diam: 2.3 cm LVIDs: 3.2 cm Ao root diam: 3.3 cm FS: 37.0 % IVSd: 1.1 cm LVPWd: 1.1 cm LV pinto. diameter/BSA (cm/m^2): 2.4 LV sys. diameter/BSA (cm/m^2): 1.5 Doppler Measurements & Calculations TR max janina: 0.37 cm/sec TR max P.00 mmHg PA V2 max: 108.0 cm/sec PA V2 mean: 75.2 cm/sec PA mean P.4 mmHg PA pr(Accel): 25.9 mmHg Reading Physician:ANURADHA
[2023-11-08 08:00] VITALS: BP 110/78; PULSE 68; RESP 18; O2SAT 96
[2023-11-08] MEDS: DOXYCYCLINE HYCLATE 100 MG TABLET PO (10:05)
[2023-11-08] MEDS: cefTRIAXone 1,000 MG in SODIUM CHLORIDE 0.9% 100 ML 200 MG IV (10:05)
[2023-11-08] MEDS: SODIUM CHLORIDE 0.9% FLUSH 10 ML IV (10:06)
--- NOTE | 2023-11-08 10:35 | CM.DANOTE ---
Addendum entered by KATRINA Jose 11/08/23 14:05: ADD: Per , pt medically stable to discharge home today and no identified barriers to discharge. Per RN, getting pt's discharge pwk and instructions and pt happy to be discharging today and no concerns noted. Patient discharging home this afternoon via Sig Other POV and outpt f/u. No further SW needs. BF Original Note: Patient is a 78 yo male who was admitted OBS Status on 11/07/23 for Chest Pain r/o. Patient has AARP MCR under [employer] for insurance and his PCP is in [place]. EMR was reviewed. Per , pt with a hx of AFIB, COPD, lung CA with lung removal surgery and O2 for night use. Pt admitted for possible pneumonia and started on IV-Abx and nuc stress test and if results normal then likely discharge later today. SW met bedside with pt and explained role and he confirms he lives in [facility] with his Sig Shemar Randhawa and they drove up to visit their local friend Ethan to stay for about 10 days and go on his boat out to [place]. Pt is very active and independent at baseline, does not use DME for ambulation, still drives, and golfs multiple days a week in [place]. Pt does have oxygen for use at night, but does not need it very often, and does notice some SOB with significant exertion due to basically only having one lung. Pt very energetic and preference is to discharge home later today and does not anticipate any needs and confirms Sig Other will provide transport back to their friend's house and they will stay another week before going back to [place]. Plan: SW to follow closely for stress test results towards likely discharge home later today and any further identified discharge planning needs. KATRINA Jose Discharge Planning/Care Management CM Discharge Assessment Start: 11/08/23 10:33 Freq: Status: Active Protocol: Document 11/08/23 10:34 BF (Rec: 11/08/23 10:35 BF [id number]) Discharge Planning Assessment Assigned Sheet Metal Duct Installer KATRINA Schaffer DPOA/Assigned Designee Name joe Randhawa Contact Information [phone] Advance Directives? No Advance Directives on File No History Provided By Patient,Medical Record Has Patient been admitted in last 30 No days? Prior Living Arrangements House Household Members significant other Type of transporation used prior to Drives own vehicle admit Independent with ADL's Yes Is patient alert and oriented? Yes Caregiver for Another No Barriers to Discharge No Discharge Plan Home Transportation Arrangement Sig Other Sydnee will bring the car and provide transport to their friend's house [place]. Referrals Initiated None needed Whiteboard Updated in Patient Room with Yes name and ext. # of Sheet Metal Duct Installer Review Status In Process Please Provide Date Initial DC 11/08/23 Assessment Was Performed Next Review Type Continued Stay Review
[2023-11-08 12:00] VITALS: BP 113/78; PULSE 64; RESP 17; O2SAT 94
--- NOTE | 2023-11-08 13:14 | P.DS_ITS ---
History of Present Illness History of Present Illness Chief complaint: possible heart attack Narrative: From ED notes: Patient is a 78-year-old male history of atrial fibrillation pneumonectomy on Eliquis Trulicity diltiazem aspirin presenting today with right-sided chest pain and some shortness of breath. He reports it started last night it has been constant in nature it does not hurt to move. He reports it is deep inside no known coronary artery disease it does go up into his neck sometimes. No fever chills or sweats. They drove up here from [place] to help a friend out. He has no known congestive heart failure. He has been taking all his medications. Looks to be in sinus rhythm on the monitor. ED course: ECG obtained, nonacute. 2 negative troponins obtained and discussed with Cardiology with recommendations for stress test. Empiric antibiotics started for possible pneumonia. Subjective: 78-year old man with a history of atrial fibrillation on chronic anticoagulation who recently drove up from [facility]. He has had a 3 day history of pleuritic chest pain on the right, with minimal associated dyspnea, no cough and no fevers. He also has not had rhinorrhea. He has a history of a partial pneumonectomy on the right for cancer as well as radiation therapy to the right chest for recurrence in . He denies any clear exertional component of his pain, no leg edema, and no orthopnea. He was visiting a friend in the area. He has no known history of CAD. He was admitted for concern of chest pain and Cardiology was called from the ED. They recommended a stress test. The patient had 2- troponins in the ED and a static ECG. There is a question of infiltrate, he was started on antibiotics. Discharge Providers Provider Date of admission: 11/07/23 15:33 Discharge Date: 11/08/23 Primary care physician: STEVEN Bush Consults: None. Discharge provider: Jasvir Garcai MD Summary Hospital Course Discharge Diagnosis: 1. Chest pain, present on admission and resolved with 2 nitroglycerin. Heart score was 5 in the emergency department. 2. Possible community-acquired pneumonia, present on admission and active. 3. Chronic atrial fibrillation on apixaban, present on admission and stable. Hospital Course: He was admitted for chest pain which was right-sided and somewhat atypical. He was started on empiric antibiotics for a possible pneumonia and underwent a stress test on November 07 after serial troponins were normal. This stress test was read as low risk, it involved a nuclear scan as well. The patient had resolution of symptoms and was felt to be stable for discharge with close follow up. He will be discharged with 5 total days of doxycycline 100 b.i.d. for possible pneumonia. He does have a history of a right pneumonectomy in the past and recurrent cancer which has been treated with radiation to the right lung [place]. Status at Discharge Cognitive/behavioral status at discharge: oriented Functional status at discharge: independent ambulation Overall status at discharge: patient is back to baseline Time Spent with Patient Time spent: Greater than 30 minutes Exam Vital Signs (past 8 hours): - 11/08/23 08:00 11/08/23 12:00 Pulse Rate 68 64 Respiratory Rate 18 17 Blood Pressure 110/78 113/78 Pulse Oximetry 96 94 Oxygen Flow Rate 2 0 Oxygen Delivery Method Room Air,Nasal Cannula Oxygen Flow Rate 0 Narrative Exam Narrative: NAD, alert and oriented. Fluent speech. Lungs are clear, normal rate and effort. Heart is regular, no murmur gallop or rub. Abdomen is soft, non distended. Extremities are free of edema. Objective ECG Impression: Normal sinus rhythm with sinus arrhythmia Right bundle branch block Imaging Chest x-ray: Radiologist's impression: Small left infrahilar infiltrate versus atelectasis. Small right pleural effusion with right basilar atelectasis. No pneumothorax. Labs 11/08/23 04:10 11/08/23 04:10 Labs: Laboratory Results - last 24 hr 11/07/23 11/07/23 11/07/23 12:01 13:55 15:05 WBC RBC Hgb Hct MCV MCH MCHC RDW Plt Count Neut % (Auto) Lymph % (Auto) [place] % (Auto) Eos % (Auto) Baso % (Auto) Neut # (Auto) Lymph # (Auto) [place] # (Auto) Eos # (Auto) Baso # (Auto) D-Dimer < 215 Sodium Potassium Chloride Carbon Dioxide BUN Creatinine Estimated GFR BUN/Creatinine Ratio Glucose Calcium Troponin I < 0.012 Urine Color Yellow Urine Appearance Clear Urine pH 5.5 Ur Specific [place] 1.015 Urine Protein Negative Urine Glucose (UA) Negative Urine Ketones Negative Urine Occult Blood Negative Urine Nitrate Negative Urine Bilirubin Negative Urine Urobilinogen 0.2 Ur Leukocyte Esterase Trace H Urine RBC None seen Urine WBC 0-1/hpf Ur Squamous Epith Cells 0-1 /hpf Urine Bacteria Occasional (0-1) Ur Culture Indicated? Specimen cultured Vol Urine Centrifuged 10ml (spun) 11/07/23 11/08/23 18:00 04:10 WBC 11.7 H RBC 4.43 L Hgb 15.0 Hct 44.3 MCV 100.0 MCH 33.8 MCHC 33.8 RDW 14.5 Plt Count 282 Neut % (Auto) 56.8 Lymph % (Auto) 24.1 L [place] % (Auto) 16.1 H Eos % (Auto) 2.1 Baso % (Auto) 0.9 Neut # (Auto) 6600 Lymph # (Auto) 2800 [place] # (Auto) 1900 H Eos # (Auto) 200 Baso # (Auto) 100 D-Dimer Sodium 136 L Potassium 4.0 Chloride 106 Carbon Dioxide 26 BUN 20 Creatinine 1.02 Estimated GFR > 60 BUN/Creatinine Ratio 19.6 Glucose 128 H Calcium 9.1 Troponin I < 0.012 Urine Color Urine Appearance Urine pH Ur Specific [place] Urine Protein Urine Glucose (UA) Urine Ketones Urine Occult Blood Urine Nitrate Urine Bilirubin Urine Urobilinogen Ur Leukocyte Esterase Urine RBC Urine WBC Ur Squamous Epith Cells Urine Bacteria Ur Culture Indicated? Vol Urine Centrifuged [facility] Social History household members: significant other Smoking Status: Former smoker Discharge Assessment & Plan Assessment and Plan Assessment: 1. Chest pain, present on admission and resolved with 2 nitroglycerin. Heart score was 5 in the emergency department. 2. Possible community-acquired pneumonia, present on admission and active. 3. Chronic atrial fibrillation on apixaban, present on admission and stable. Plan of Treatment: Discharge home with 5 days of doxycycline 100 p.o. b.i.d.. Discharge Plan Discharge Plan Patient Disposition: Home Provider Discharge Comment: Low rest nuclear stress study today, chest pain resolved. He was stable for discharge home with a short course of oral antibiotics. Discharge orders & Medications Prescriptions: New doxycycline hyclate 100 mg capsule 100 mg PO BID Qty: 10 0RF Continued losartan 50 mg Tablet 50 mg PO BID metformin 500 mg Tablet 500 mg PO DAILY atorvastatin 20 mg Tablet 20 mg PO DAILY spironolactone 25 mg Tablet 25 mg PO DAILY pantoprazole 40 mg Tablet,Delayed Release (Dr/Ec) 40 mg PO DAILY flecainide 50 mg Tablet 50 mg PO Q12H fluticasone propionate 50 mcg/actuation [place],Suspension 1 spray INTRANASAL BID Rx Instructions: administer into each nostril apixaban 5 mg Tablet 5 mg PO DAILY Trelegy Ellipta 100-62.5-25 mcg Blister With Device 1 inh INHALATION DAILY diltiazem HCl 120 mg Capsule,Extended Release 24 Hr 120 mg PO DAILY Discharge Health Status Multidrug resistant organism: No MDRO Diet/Activity/Treatments Diet: Regular Activity: As tolerated. Skin/Wound/Dressing Care Report to your healthcare provider any signs of infection, such as:: chills, fever Visit Report/Discharge Packet Instructions: DI for Chest Pain Stand Alone Forms: Patient Portal/API Discharge Data Attending Provider: Jasvir Garcia Admit Date/Time: 11/07/23 15:33 Quality MIPS - DC The patient has a history of heart transplant or Left Ventricular Assist Device (LVAD). If yes, STOP here.: No The patient has current or prior documentation of left ventricular ejection fraction (LVEF) less than or equal to 40%, or moderate or severely depressed left ventricular systolic function.: No
--- NOTE | 2023-11-08 18:45 | DI.NM.S_ITS ---
DATE OF SERVICE: 11/08/2023 PHARMACOLOGICAL PERFUSION STUDY INDICATION: Chest pain with history of atrial fibrillation. RADIOPHARMACEUTICAL: 27.5 millicurie technetium-99m Myoview IV was injected at stress and 9.9 millicurie technetium-99m Myoview IV was injected at rest. CARDIAC STRESS: Initially, patient attempted walking on a treadmill. He walked on Theo protocol for about 3 minutes, but achieved only maximum heart rate of 96, which was 67% of target heart rate. He had leg heaviness. Test was converted to Lexiscan pharmacological perfusion study. He received IV Lexiscan as per protocol. He remained hemodynamically stable. Resting blood pressure was 118/70. Baseline rhythm was sinus with right bundle branch block. The patient has intermittent PACs and PVCs without any AFib or ischemic changes. The patient had baseline right-sided pleuritic type of chest pain which was getting worse with deep breathing. No worsening with exertion. RAW DATA: There is an increased subdiaphragmatic activity. GATED STUDY: Resting LV ejection fraction 67% and stress LV ejection fraction 73%. No obvious wall motion abnormalities. Resting end- diastolic volume 103 mL. TID ratio 0.73 which is within normal limits. Lung/heart ratio 0.43 which is within normal limits. MYOCARDIAL PERFUSION SCAN: Stress supine, resting supine, and stress prone images were compared to each other. Resting supine images revealed moderate size, moderate to severely decreased perfusion of inferior wall extending into the basal inferior septum as well as inferoapex and distal anterior wall. Stress supine images revealed moderate size, mild to moderately decreased perfusion of base to mid inferior wall. During stress prone images, all the defects were significantly improved. Stress prone images did not reveal any obvious ischemia or infarction. CONCLUSION: I will call the study a normal myocardial perfusion study with evidence of predominantly diaphragmatic tissue attenuation artifact got improved during stress prone images. Preserved left ventricular function. Poor exercise tolerance with leg heaviness. Please consider workup to rule out PAD. As far as perfusion scan is concerned, this is a low-risk myocardial pharmacological perfusion scan. Sharath Brand - BEATRIZ/daniel/JOSSELYN doc#: [id number]/job#: [id number] dd: 11/08/2023 12:55:00 dt: 11/08/2023 18:28:00 DICTATING MD/COPIES TO: Jimmie Roland MD COPIES MNE: ANNE;
== END 2023-11-08 14:00 | disposition home or self-care (01) ==
LOC: ED 14:12 → AC 15:34 → ICU 17:11
PROVIDERS: Emergency Medicine; Admitting Provider Hospitalist; Emergency Provider Student in an Organized Health Care Education/Training Program; Referring Provider Student in an Organized Health Care Education/Training Program; Visit Provider Hospitalist
DX: R07.9 Chest pain, unspecified (principal); R06.02 Shortness of breath; I48.20 Chronic atrial fibrillation, unspecified; Z79.01 Long term (current) use of anticoagulants
CPT/HCPCS: 36415; 71045; 78452; 80048; 80053; 81001; 82550; 83690; 83735; 83880; 84484; 85025; 85379; 85610; 85730; 87040; 87086; 93005; 93017; 93306; 96365; 96366; 99284; G0378; A9502; J0696; J2785